=== PATIENT | female | born 1985 | race Asian ===

== ENCOUNTER 2019-06-25 13:20 | Emergency (ER) | payer MEDICAID, OTHER ==
[~2019-06-25] VITALS: Ht 165.1 cm; Wt 49.9 kg
[~2019-06-25 13:20] MED LIST: KEFLEX500 MG ORAL
[2019-06-25 13:30] VITALS: BP 106/73
--- NOTE | 2019-06-25 13:31 | NUR ---
ED Nurse Note: Pt walked in from home c/o sore throat with left sided swelling. Pt reports nasal congestion and "white spots" on her throat. Pt reports being in [place] in march and returning beginning of april. Pt afebrile. Respirations even and unlabored on room air. Vitals stable as documented.
--- NOTE | 2019-06-25 14:34 | NUR ---
ED Nurse Note: ED PA @ bedside
--- NOTE | 2019-06-25 14:55 | Emergency Room Report ---
History of Present Illness General Chief Complaint: Flu Like Symptoms Source: Patient Present Illness HPI 34-year-old female presents to the emergency department complaining of sore throat x3 days which is improving on its own. She denies pain at this time. Patient reports two days ago she had some pain and swelling in the left tonsil and states that at home she saw some white dots on her tonsil. Patient states that she does not really have any pain today. Patient states she has not taken any [id number]-fol-[id number] medications. She does report some increase in fatigue lately but she denies cough, fevers, chills, nasal congestion or rhinorrhea. Patient is also very concerned that she may have coronavirus as she traveled in [place] at the end of March and returned the first week of April. Patient denies ill contacts. She states in the past she has tested positive for strep throat and is also concerned that she may have strep throat. She denies any other significant past medical history. Allergies: Coded Allergies: No Known Allergies (Unverified , 05/16/14) Patient History Past Medical History: see triage record Past Surgical History: none Pertinent Family History: none Last Menstrual Period: 06/16/2019 Now: No Reviewed Nursing Documentation: PMH: Agreed; PSxH: Agreed Nursing Documentation-PMH Past Medical History: No Stated History Review of Systems All Other Systems: negative except mentioned in HPI Physical Exam Vital Signs Date Time Temp Pulse Resp B/P (MAP) Pulse Ox O2 Delivery O2 Flow Rate FiO2 06/25/19 13:22 98.4 91 16 106/73 (84) 98 Room Air Sp02 EP Interpretation: reviewed, normal General Appearance: no apparent distress, alert, GCS 15, non-toxic Head: normocephalic, atraumatic Eyes: bilateral eye normal inspection, bilateral eye PERRL ENT: hearing grossly normal, normal pharynx, normal voice, other - No visible tonsillar swelling, no exudates. [place]/ [place] appearance. Neck: full range of motion, no meningismus, no bony tend Respiratory: lungs clear, normal breath sounds, speaking full sentences Cardiovascular #1: regular rate, rhythm Musculoskeletal: normal range of motion, gait/station normal, non-tender Neurologic: alert, motor strength/tone normal, oriented x3, sensory intact, responsive, speech normal Psychiatric: judgement/insight normal Lymphatic: no adenopathy Medical Decision Making PA Attestation Dr. Walter Is my supervising Physician whom patient management has been discussed with. Diagnostic Impression: Primary Impression: Sore throat Additional Impression: Acute viral tonsillitis ER Course 34-year-old female presents to the emergency department complaining of sore throat x3 days which is improving on its own. She denies pain at this time. Patient reports two days ago she had some pain and swelling in the left tonsil and states that at home she saw some white dots on her tonsil. Patient states that she does not really have any pain today. Patient states she has not taken any akgw-hgq-fhksjgs medications. She does report some increase in fatigue lately but she denies cough, fevers, chills, nasal congestion or rhinorrhea. Patient is also very concerned that she may have coronavirus as she traveled in [place] at the end of March and returned the first week of April. Patient denies ill contacts. She states in the past she has tested positive for strep throat and is also concerned that she may have strep throat. She denies any other significant past medical history. Ddx considered but are not limited to: pharyngitis, strep, [employer], ludwigs angina, URI Vital signs: are WNL, pt. is afebrile H&PE are most consistent with: pharyngitis - resolved on its own, most likely viral in etiology. Pt. does not meet Centor criteria. PT. is Low risk for nCov- 19 - asymptomatic not demonstrating lower respiratory symptoms. ORDERS: None required at this time as the diagnosis is clinical ED INTERVENTIONS: none required at this time. D/w pt. Low risk viral symptom at home treatment and will give home care instructions. DISCHARGE: At this time pt. is stable for d/c to home. Will provide printed patient care instructions, and any necessary prescriptions. Care plan and follow up instructions have been discussed with the patient prior to discharge. Last Vital Signs Date Time Temp Pulse Resp B/P (MAP) Pulse Ox O2 Delivery O2 Flow Rate FiO2 06/25/19 13:30 91 16 Room Air 06/25/19 13:30 98.4 106/73 98 Disposition: HOME, SELF-CARE Condition: Stable Scripts Chlorhexidine Gluconate (CHLORHEXIDINE GLUCONATE) 473 Ml Mouthwash 5 ML MM TID, #473 ML Prov: Gracie Landa 06/25/19 Ibuprofen* (MOTRIN*) 600 Mg Tablet 600 MG ORAL THREE TIMES A DAY, #30 TAB 0 Refills Prov: Gracie Landa 06/25/19 Patient Instructions: Medical Screening Exam Additional Instructions: ~ ~ An emergent medical condition has not been identified based on this patients presentation, exam and any necessary testing/imaging. The patient is determined to be stable for outpatient follow-up and management of symptoms by a primary care provider. --- CENTOR CRITERIA was used to evaluate your risk of streptococcal tonsillitis. ---Review information for persons who are experiencing mild viral symptoms and how to proceed with outpatient care. Take medications as directed. Follow up with a Primary Care Provider in 3-5 days, even if your symptoms have resolved. --Please review list of primary care clinics, if you do not already have a primary care provider Return sooner to ED if new symptoms occur, or current symptoms become worse. - Please note that this Emergency Department Report was dictated using [employer] supervisor technology software, occasionally this can lead to erroneous entry secondary to interpretation by the dictation equipment. Gracie Landa Jun 25, 2019 14:55
[2019-06-25] MEDS ORDERED: IBUPROFEN600 MG ORAL (14:56)
[2019-06-25] MEDS ORDERED: CHLORHEXIDINE473 ML MM (14:56)
[2019-06-25 15:05] VITALS: BP 111/76
--- NOTE | 2019-06-25 15:05 | NUR ---
ER DISCHARGE NOTE: Patient is cleared to be discharged per ERMD, pt is aox4, on room air, with stable vital signs as documented. pt was given dc and prescription instructions and was able to verbalize understanding. pt id band removed. pt is able to ambulate with steady gait. pt took all belongings.
== END 2019-06-25 15:05 | disposition home or self-care (01) ==
LOC: EMR 14:45
DX: J02.9 Acute pharyngitis, unspecified (principal); J03.80 Acute tonsillitis due to other specified organisms; B97.89 Other viral agents as the cause of diseases classified elsewhere
CPT/HCPCS: 99282